=== PATIENT | female | born 1990 | race Caucasian/White ===

== ENCOUNTER 2016-03-25 14:00 | Inpatient (IN) | payer BC ==
[2016-03-25] VITALS (11 sets, daily range): BP systolic 108–176; RESP 16–23; TEMP 98.7; Ht 160 cm; Wt 89.4 kg
[~2016-03-25] VITALS: Ht 160 cm; Wt 89.4 kg
[~2016-03-25 14:00] MED LIST: MIDAZOLAM 2 MG/2 ML INJ IV ONE; MORPHINE PF 0.5 MG/ML 10 ML IV ONE
[2016-03-25] MEDS ORDERED: LACT RINGERS 1,000 ML IV SCH ×2 (15:00→15:45)
[2016-03-25] MEDS ORDERED: FAMOTIDINE 20 MG INJ IV ONE ×2 (15:00→15:45)
[2016-03-25] MEDS ORDERED: METOCLOPRAMIDE 10 MG/2 ML VIAL IV PUSH ONE ×2 (15:00→15:45)
[2016-03-25] MEDS ORDERED: CEFAZOLIN 3,000 MG in SODIUM CHLORIDE 0.9% 100 ML IV ONE (15:00)
[2016-03-25] MEDS ORDERED: DIPHENHYDRAMINE 50 MG/ML VIAL IV ONE (15:45)
[2016-03-25] MEDS ORDERED: CEFAZOLIN (LD/OB) 100 ML IV ONE (18:14)
[2016-03-25] MEDS ORDERED: BUTORPHANOL 1 MG/ML VIAL IV PRN (19:10)
[2016-03-25] MEDS ORDERED: MORPHINE 4 MG/ML SYR IV PRN ×2 (19:10)
[2016-03-25] MEDS ORDERED: SALINE FLUSH 10 ML FLUSH PRN (19:10)
[2016-03-25] MEDS ORDERED: ONDANSETRON 4 MG VIAL IV PRN ×3 (19:10→20:20)
[2016-03-25] MEDS ORDERED: NALOXONE 0.4 MG/ML AMP IV PRN (19:10)
[2016-03-25] MEDS ORDERED: PROMETHAZINE 25 MG/ML VIAL IV PRN (19:10)
[2016-03-25] MEDS ORDERED: MEPERIDINE 25 MG/ML IV PRN (19:10)
[2016-03-25] MEDS ORDERED: OXYCODONE 5 MG TAB PO PRN (19:10)
[2016-03-25] MEDS ORDERED: MORPHINE 2 MG/ML SYR IV PRN ×2 (19:10)
[2016-03-25] MEDS ORDERED: DIPHENHYDRAMINE 50 MG/ML VIAL IV PRN (19:10)
[2016-03-25] MEDS: SALINE FLUSH 10 ML FLUSH SCH (20:00)
[2016-03-25] MEDS ORDERED: TDaP 0.5 ML VIAL IM.VACC ONE (20:20)
[2016-03-25] MEDS ORDERED: MEASLES,MUMPS,RUBELLA VAC SUBQ.VACC ONE (20:20)
[2016-03-25] MEDS: LACT RINGERS 1,000 ML IV SCH (22:03)
[2016-03-25] MEDS: OXYTOCIN 15 UNITS/250 ML NS 250 ML IV SCH (22:06)
[2016-03-25] MEDS: DILAUDID 1 MG/ML AMP IV PRN ×2 (22:44→23:04)
[2016-03-26] MEDS: KETOROLAC 30 MG/ML VIAL IV SCH ×4 (00:11→17:38)
[2016-03-26] MEDS: MISOPROSTOL 100 MCG TAB PO SCH ×4 (00:11→17:37)
[2016-03-26 01:14] VITALS: BP_SYST 113; RESP 18; TEMP 98.7
[2016-03-26] MEDS: OXYTOCIN 15 UNITS/250 ML NS 250 ML IV SCH (03:59)
[2016-03-26] MEDS: LACT RINGERS 1,000 ML IV SCH (05:13)
[2016-03-26 05:27] VITALS: BP_SYST 129; RESP 20; TEMP 98.1
[2016-03-26] MEDS ORDERED: SODIUM CHLORIDE 0.9% FLUSH BAG 500 ML IV SCH (06:00)
[2016-03-26] MEDS: LEVOTHYROXINE 0.1 MG TAB PO SCH (07:13)
[2016-03-26] MEDS ORDERED: OXYCODONE/APAP 5/325 TAB PO PRN (09:15)
[2016-03-26 11:04] VITALS: BP_SYST 137; RESP 20; TEMP 98.1
[2016-03-26] MEDS: Ibuprofen 600 MG TAB PO SCH ×3 (12:00→23:57)
[2016-03-26 13:59] VITALS: BP_SYST 135; RESP 18; TEMP 98.3
[2016-03-26 17:26] VITALS: BP_SYST 130; RESP 16; TEMP 98.3
[2016-03-26] MEDS: MAG HYDROX 30 ML UDC PO SCH ×2 (17:37→23:57)
[2016-03-26] MEDS: SALINE FLUSH 10 ML FLUSH SCH (20:00)
[2016-03-27 05:42] VITALS: BP_SYST 127; RESP 20; TEMP 97.7
[2016-03-27] MEDS: Ibuprofen 600 MG TAB PO SCH ×4 (05:43→23:26)
[2016-03-27] MEDS: LEVOTHYROXINE 0.1 MG TAB PO SCH (06:17)
[2016-03-27] MEDS: MAG HYDROX 30 ML UDC PO SCH (08:48)
[2016-03-27 09:10] VITALS: BP_SYST 122; RESP 18; TEMP 97.7
[2016-03-27] MEDS: SALINE FLUSH 10 ML FLUSH SCH (09:57)
[2016-03-27 18:05] VITALS: BP_SYST 143; RESP 18; TEMP 98.1
[2016-03-28] VITALS (7 sets, daily range): BP systolic 122–150; RESP 16–18; TEMP 97.7–98.3
[2016-03-28] MEDS: Ibuprofen 600 MG TAB PO SCH ×4 (05:20→23:04)
[2016-03-28] MEDS ORDERED: MISSING DOSE XX ONE (05:30)
[2016-03-28] MEDS: LEVOTHYROXINE 0.1 MG TAB PO SCH (06:28)
[2016-03-29 05:25] VITALS: BP_SYST 130; RESP 18; TEMP 98.3
[2016-03-29] MEDS: LEVOTHYROXINE 0.1 MG TAB PO SCH (06:06)
[2016-03-29] MEDS: Ibuprofen 600 MG TAB PO SCH ×4 (06:06→23:45)
[2016-03-29 10:37] VITALS: BP_SYST 128; BP_SYST 134; RESP 18; TEMP 97.8
[2016-03-29] MEDS: NIFEdipine XL 30 MG TAB PO SCH (11:20)
[2016-03-29 16:00] VITALS: BP_SYST 134; RESP 18; TEMP 98.1
[2016-03-29 18:31] VITALS: BP_SYST 148; RESP 18; TEMP 97.6
[2016-03-30] MEDS: LEVOTHYROXINE 0.1 MG TAB PO SCH (06:06)
[2016-03-30] MEDS: Ibuprofen 600 MG TAB PO SCH ×2 (06:06→12:09)
[2016-03-30 06:07] VITALS: BP_SYST 137; TEMP 98.3
[2016-03-30] MEDS: NIFEdipine XL 30 MG TAB PO SCH (09:30)
[2016-03-30 09:32] VITALS: BP_SYST 135
[2016-03-30 09:33] VITALS: RESP 18; TEMP 97.5
[2016-03-30 11:34] VITALS: BP_SYST 135; RESP 18; TEMP 97.5
[2016-03-30] MEDS ORDERED: FENTANYL 100 MCG/2 ML AMP IV ONE (12:59)
[2016-03-30] MEDS ORDERED: OXYTOCIN 10 UNITS/ML VIAL IV ONE (12:59)
== END 2016-03-30 13:00 | disposition home or self-care (01) | DRG 766 ==
LOC: LD 14:12 → OB 23:40
PROVIDERS: ADMIT Obstetrics & Gynecology Reproductive Endocrinology; ATTEND Obstetrics & Gynecology Reproductive Endocrinology
PROC: 10D00Z1 Extraction of Products of Conception, Low, Open Approach (ICD-10-PCS; principal; 2016-03-25)
PROC: 0UB70ZZ Excision of Bilateral Fallopian Tubes, Open Approach (ICD-10-PCS; 2016-03-25)
PROC: 10907ZC Drainage of Amniotic Fluid, Therapeutic from Products of Conception, Via Natural or Artificial Opening (ICD-10-PCS; 2016-03-25)
DX: O13.4 Gestational [pregnancy-induced] hypertension without significant proteinuria, complicating childbirth (principal); E03.9 Hypothyroidism, unspecified; Z37.0 Single live birth; Z3A.36 36 weeks gestation of pregnancy; O34.219 Maternal care for unspecified type scar from previous cesarean delivery; O99.284 Endocrine, nutritional and metabolic diseases complicating childbirth
CPT/HCPCS: 36415; 82803; 85025; 86850; 86870; 86900; 86901; 88302